=== PATIENT | female | born 1960 | race Caucasian/White ===

== ENCOUNTER 2019-07-17 15:03 | Emergency (ER) | payer OTHER ==
[2019-07-17 15:30] VITALS: TEMP 97.7; BMI 20.9
--- NOTE | 2019-07-17 15:44 | PDOC ---
History of Present Illness - General Chief Complaint: Chest Pain Stated Complaint: CHEST PAIN Time Seen by Provider: 07/17/19 15:28 History Source: Patient Exam Limitations: No Limitations - History of Present Illness Initial Comments: 07/17/19 16:06 59f with pmh of HTN, HLD, TIA, COPD/Emphysema, anxiety, hip replacement, intermittent 7/10 stabbing left sided chest pain since 1030 this morning radiating to her left shoulder associated with numbness to her left arm. She was shopping at the time. Has had chest pain in the past but never that severe. Was convinced to come to the er by her field nurse case manager. Often mixes oxycodon and benzos meds which cause her to fall. Smokes 5 cigarettes a day, has numerous family members who dies of MA's in their 50's. Presenting Symptoms: Chest Pain Timing/Duration: reports: intermittent Severity/Quality: reports: severe, stabbing Location: reports: other (left side of the chest) Chest Pain Radiation: reports: shoulders (left shoulder) Activities at Onset: reports: rest (shopping) Modifying Factors: improves with: movement, palpation Nitro Today/Relief: Yes: no nitro taken today Past History - Past Medical History Allergies/Adverse Reactions: Allergies Allergy/AdvReac Type Severity Reaction Status Date / Time No Known Allergies Allergy Verified 06/03/14 19:23 Home Medications: Ambulatory Orders Alprazolam [Xanax -] 2 mg PO TID 06/03/14 Gabapentin 100 mg PO ASDIR #60 capsule 06/03/14 Oxycodone HCl/Acetaminophen [Percocet 10-325 mg Tablet] 1 - 2 tab PO Q4H PRN # 20 tablet 06/03/14 Asthma: Yes CVA: Yes COPD: Yes HTN: Yes Liver Disease: Yes (hep c) Psychiatric Problems: Yes (anxiety) - Psycho Social/Smoking Cessation Hx Smoking History: Current every day smoker Have you smoked in the past 12 months: Yes Number of Cigarettes Smoked Daily: 5 Information on smoking cessation initiated: Yes Hx Alcohol Use: No Drug/Substance Use Hx: No Substance Use Type: Alcohol Review of Systems - Review of Systems Able to Perform ROS?: Yes Is the patient limited Georgian proficient: No Constitutional: No: Symptoms Reported HEENTM: No: Symptoms Reported Respiratory: No: Symptoms reported Cardiac (ROS): Yes: See HPI ABD/GI: No: Symptoms Reported : No: Symptoms Reported Musculoskeletal: No: Symptoms Reported All Other Systems: Reviewed and Negative *Physical Exam - Vital Signs Last Vital Signs Temp Pulse Resp BP Pulse Ox 97.7 F 100 H 19 124/86 95 07/17/19 15:13 07/17/19 15:23 07/17/19 15:23 07/17/19 15:23 07/17/19 15:23 - Physical Exam General Appearance: Yes: Nourished, Appropriately Dressed. No: Apparent Distress HEENT: positive: EOMI, MELINDA, Normal ENT Inspection Respiratory/Chest: positive: Chest Tender (left), Decreased Breath Sounds Cardiovascular: positive: Regular Rhythm, S1, S2, Tachycardia Gastrointestinal/Abdominal: positive: Normal Bowel Sounds. negative: Tender, Flat, Soft Musculoskeletal: positive: Normal Inspection. negative: CVA Tenderness Extremity: positive: Normal Capillary Refill, Normal Inspection, Normal Range of Motion Heart Score/ECG Review - History History: Moderately suspicious - Age Age: 45-65 - Risk Factors Risk Factors Heart Score: Yes Hx Hypercholesterolemia, Yes Hx Hypertension, No Hx Diabetes, Yes Smoking History, Yes Positive family hx of cardiac disease, No Hx Obesity Based on the list above the patient has:: >/=3 risk factors or Hx atherosclerotic disease - ECG Intrepretation Rhythm: Regular Rhythm - P and MI Atrial Enlargement: Left ED Treatment Course - LABORATORY CBC & Chemistry Diagram: 07/17/19 15:55 07/17/19 15:55 - RADIOLOGY Radiology Studies Ordered: Category Date Time Status CHEST X-RAY PORTABLE* [RAD] Stat Radiology 07/17/19 15:42 Ordered Medical Decision Making - Medical Decision Making 07/17/19 16:11 59f with pmh of HTN, HLD, TIA, COPD/Emphysema, anxiety, hip replacement, intermittent 7/10 stabbing left sided chest pain since 1030 this morning radiating to her left shoulder associated with numbness to her left arm. patient is insisting that she wants to go home to feed her pupper. Negotiating for her to stay until test results are back as this would otherwise be a tele obs admission. 07/17/19 16:17 EKG: Sinus rhythm with PAC's possible left atrial enlargement, septal infarct. 07/17/19 16:26 Patient left AMA Discharge - Discharge Information Problems reviewed: Yes Clinical Impression/Diagnosis: Chest pain Disposition: AGAINST MEDICAL ADVICE - Admission No - Follow up/Referral Referrals: Matthew Hines MD [Primary Care Provider] - - Patient Discharge Instructions - Post Discharge Activity
[2019-07-17 15:51] VITALS: BP 124/86; PULSE 100
[2019-07-17] MEDS ORDERED: ASPIRIN 325 MG TABLET PO ONE (16:05)
--- NOTE | 2019-07-17 16:19 | PDOC ---
Attending Attestation - Resident Resident Name: Antolin Norris - ED Attending Attestation I have performed the following: I have examined & evaluated the patient, The case was reviewed & discussed with the resident, I agree w/resident's findings & plan, Exceptions are as noted - HPI HPI: 07/17/19 16:16 59f with pmh of HTN, HLD, TIA, COPD/Emphysema, anxiety, hip replacement, intermittent 7/10 stabbing left sided chest pain since 1030 this morning radiating to her left shoulder associated with numbness to her left arm - Physicial Exam PE: 07/17/19 16:16 PE exam deferred by patient, requesting to leave AMA - Medical Decision Making 07/17/19 16:16 59 years old with aforementioned past medical history presented with chest pain states that she is very anxious needs to get home to her dog I was concerned given patient's complaint her EKG demonstrates normal sinus rhythm with no ST elevations and no T wave inversions septal infarct age-indeterminate I strongly recommended that the patient stay for recent blood work but she is not amenable to staying in the emergency department The patient is presenting with Chest pain. I am concerned that this may be ACS. The patient has verbalized understanding of my concerns. The patient is clinically sober and appears free from distracting injury. The patient appears to have intact insight, judgment, and reason. In my opinion, this patient has the capacity to make decisions The risks of leaving against medical advice without further evaluation treatment were discussed with the patient. These risks include Heart attack, , permanant disability. The patient indicated understanding of these risks and appeared to have the capacity to make this decision. The patient is unwilling to stay for a Labs and admission, patient is unwilling to remain for additional monitoring. He is refus-ing further care and leaving against medical advice I'm unable to convince the patient to stay. I have asked the patient to return as soon as possible to complete her evaluation.
[2019-07-17 16:51] LABS: BILIRUBIN,TOTAL 0.2 mg/dL (0.2-1); BLOOD UREA NITROGEN 10.1 mg/dL (7-18); CALCIUM 8.8 mg/dL (8.5-10.1); CREATININE 0.7 mg/dL (0.55-1.3); POTASSIUM 3.8 mmol/L (3.5-5.1); TOT PROT 7.3 g/dl (6.4-8.2)
[2019-07-17 16:54] LABS: BASO % 0.6 % (0-2.0); EOS % 0.4 % (0-4.5); HEMATOCRIT 43.2 % (32.4-45.2); HEMOGLOBIN 14.2 GM/dL (10.7-15.3); LYMPH % 33.6 % (8-40); MCH 32.6 pg (25.7-33.7); MCHC 32.9 g/dl (32.0-36.0); MEAN CELL VOLUME 99.2 fl (80-96); MONO % 4.9 % (3.8-10.2); NEUT % 60.5 % (42.8-82.8); PLATELET COUNT 244 K/MM3 (134-434); RBC 4.35 M/mm3 (3.60-5.2); RDW 14.9 % (11.6-15.6); WHITE BLOOD COUNT 6.7 K/mm3 (4.0-10.0)
--- NOTE | 2019-07-18 12:11 | EKG ---
Test Reason : Blood Pressure : / mmHG Vent. Rate : 094 BPM Atrial Rate : 094 BPM P-R Int : 146 ms QRS Dur : 072 ms QT Int : 388 ms P-R-T Axes : 052 013 040 degrees QTc Int : 485 ms SINUS RHYTHM WITH PREMATURE ATRIAL COMPLEXES POSSIBLE LEFT ATRIAL ENLARGEMENT SEPTAL INFARCT (CITED ON OR BEFORE 17-JUL-2019) ABNORMAL ECG WHEN COMPARED WITH ECG OF 12-FEB-2014 07:21, NON-SPECIFIC CHANGE IN ST SEGMENT IN ANTERIOR LEADS Confirmed by ESTEBAN SALGADO, SACHA ([id number]) on 07/18/2019 12:11:09 PM Referred By: Confirmed By:SACHA ORELLANA MD
== END 2019-07-17 16:39 | disposition left against medical advice (07) ==
LOC: JER 15:03
DX: R07.9 Chest pain, unspecified (principal); I10 Essential (primary) hypertension; J43.8 Other emphysema; E78.5 Hyperlipidemia, unspecified; F41.9 Anxiety disorder, unspecified; B18.2 Chronic viral hepatitis C; Z86.73 Personal history of transient ischemic attack (TIA), and cerebral infarction without residual deficits; Z96.649 Presence of unspecified artificial hip joint; F17.210 Nicotine dependence, cigarettes, uncomplicated
CPT/HCPCS: 36415; 80053; 84484; 85025; 85379; 93005; 93010; 99283-25

== ENCOUNTER 2019-07-18 13:48 | Observation (INO) | payer OTHER ==
[2019-07-18] MEDS ORDERED: SODIUM CHLORIDE 1,000 ML IV STA (14:25)
--- NOTE | 2019-07-18 14:36 | PDOC ---
History of Present Illness - General Chief Complaint: Altered Mental Status Stated Complaint: UNRESPONSUIVE/ R/O STROKE Time Seen by Provider: 07/18/19 14:08 History Source: Patient Exam Limitations: No Limitations - History of Present Illness Initial Comments: 07/18/19 14:35 Patient is a 59F with history of HTN, HLD, COPD and TIA here today complaining of facal droop, weakness and chest pain. The patient states she was last well two days ago, and noticed that her face was drooping and she spilled liquid out of her mouth while trying to eat. Endorses generalized weakness in the same 2 day time period. Patient also complains of numbness in her left leg over the past two years. Patient endorses multiple falls over a long time period. Denies etoh, endorses opiate and benzo use. Denies LOC, endorses right sided neck pain. Patient presented to the ED yesterday complaining of the same chest pain that she is complaining of today. She states it is worse on the left side, stabbing and is worse with inspiration. Denies history of blood clots, leg swelling, recent travel, estrogen use. Workup in the ED yesterday showed normal trop, negative d-dimer, EKG showed no signs of acute ischemia. Denies fevers, chills, nausea, vomiting. Denies shortness of breath and abdominal pain. Denies dysuria. NIH Stroke Scale - Last Known Well Date/Time & Onset Date Last Known Well: 07/16/19 Time Last Known Well: 08:00 - Initial Evaluation Level of consciousness: Alert Ask patient the month and their age: Answers both correctly Ask patient to open & close eyes; make fist and let go: Obeys both correctly Best gaze (horizontal eye movement): Normal Visual field testing: No visual field loss Facial paresis (Show teeth/raise eyebrows/close eyes tight): Minor paralysis ( flattened nasolabial fold, asymmetry on smiling) Motor Function: Left Arm: Normal Motor Function: Right Arm: Normal (extends arm 90 (or 45) degrees for 10 seconds without drift Motor Function: Left Leg: Normal (extends leg 30 degrees for 5 seconds without drift) Motor Function: Right Leg: Normal (extends leg 30 degrees for 5 seconds without drift) Limb Ataxia: No ataxia Sensory(Use pinprick test arms,legs,trunk,face/side to side): Normal Best language (Describe picture, name items, read sentences): No Aphasia Dysarthria (read several words): Normal articulation Extinction and Inattention: No abnormality - Total Score NIH Stroke Scale Score: 1 Past History - Past Medical History Allergies/Adverse Reactions: Allergies Allergy/AdvReac Type Severity Reaction Status Date / Time No Known Allergies Allergy Verified 06/03/14 19:23 Home Medications: Ambulatory Orders Alprazolam [Xanax -] 2 mg PO TID 06/03/14 Oxycodone HCl/Acetaminophen [Percocet 10-325 mg Tablet] 1 - 2 tab PO Q4H PRN # 20 tablet 06/03/14 Budesonide [Pulmicort 0.25 mg Nebulizer -] 1 amp IH ASDIR 07/18/19 Diltiazem HCl [Diltiazem ER] 240 mg PO DAILY 07/18/19 Fluticasone Propion/Salmeterol [Wixela 250-50 Inhub] 1 inh IN BID 07/18/19 Gabapentin 300 mg PO BID 07/18/19 Asthma: Yes CVA: Yes COPD: Yes Diabetes: No HTN: Yes Hypercholesterolemia: Yes Liver Disease: Yes (hep c) Psychiatric Problems: Yes (anxiety) - Psycho Social/Smoking Cessation Hx Smoking History: Smoker current status UNK Have you smoked in the past 12 months: No Number of Cigarettes Smoked Daily: 5 Information on smoking cessation initiated: No Hx Alcohol Use: No Drug/Substance Use Hx: No Substance Use Type: Alcohol Review of Systems - Review of Systems Able to Perform ROS?: Yes Comments:: 07/18/19 15:30 GENERAL/CONSTITUTIONAL: No fever or chills. +weakness. HEAD, EYES, EARS, NOSE AND THROAT: No change in vision. No sore throat. CARDIOVASCULAR: No chest pain or shortness of breath RESPIRATORY: No cough, wheezing, or hemoptysis. GASTROINTESTINAL: No nausea, vomiting, diarrhea or constipation. GENITOURINARY: No dysuria, frequency, or change in urination. MUSCULOSKELETAL: +L leg pain. No neck or back pain. SKIN: No rash NEUROLOGIC: No headache, vertigo, loss of consciousness, or change in strength/ sensation. ENDOCRINE: No increased thirst. No abnormal weight change HEMATOLOGIC/LYMPHATIC: No anemia, easy bleeding, or history of blood clots. ALLERGIC/IMMUNOLOGIC: No hives or skin allergy. *Physical Exam - Vital Signs Last Vital Signs Temp Pulse Resp BP Pulse Ox 97.1 F L 88 16 127/87 95 07/18/19 14:01 07/18/19 14:01 07/18/19 14:01 07/18/19 14:01 07/18/19 14:01 - Physical Exam Comments: 07/18/19 15:31 GENERAL: Sleepy but arousable, alert, and fully oriented, in no acute distress HEAD: No signs of trauma, normocephalic, atraumatic EYES: PERRLA, EOMI, sclera anicteric, conjunctiva clear ENT: Auricles normal inspection, hearing grossly normal, nares patent, oropharynx clear without exudates. Moist mucosa NECK: Normal ROM, supple, no lymphadenopathy, JVD, or masses, + R sided tenderness, no midline tenderness LUNGS: No distress, speaks full sentences, clear to auscultation bilaterally HEART: Regular rate and rhythm, normal S1 and S2, no murmurs, rubs or gallops, peripheral pulses normal and equal bilaterally. ABDOMEN: Soft, nontender, normoactive bowel sounds. No guarding, no rebound. No masses EXTREMITIES: Normal inspection, Normal range of motion, no edema. No clubbing or cyanosis. NEUROLOGICAL: L side facial droop, otherwise cranial nerves II through XII grossly intact. Normal speech, 4/5 strength in all extremities, reported decreased sensation in left leg SKIN: Warm, Dry, normal turgor, no rashes or lesions noted. ED Treatment Course - LABORATORY CBC & Chemistry Diagram: 07/18/19 14:31 07/18/19 14:31 - ADDITIONAL ORDERS Additional order review: Laboratory Results 07/18/19 14:23 POC Glucometer 61 07/18/19 14:23 POC Glucometer 61 - RADIOLOGY Radiology Studies Ordered: Category Date Time Status HEAD CT WITHOUT CONTRAST [CT] Stat CT Scan 07/18/19 14:28 Ordered CHEST X-RAY PORTABLE* [RAD] Stat Radiology 07/18/19 14:27 Ordered Medical Decision Making - Medical Decision Making 07/18/19 15:43 Patient is a 59F with history of HTN, HLD, COPD, TIA, opiate and benzo use here today with chest pain, facial droop, diffuse weakness. Vitals normal and stable. Last known well two days ago. Low suspicion symptoms caused by acute stroke, but possible. DDx includes, but not limited to: tia, opiate/benzo overdose, acs. D-dimer negative yesterday, same pain, low risk, ruled out. Will workup with cardiac workup, head ct, cervical spine ct, admit for TIA eval. 07/18/19 17:02 CBC normal. CMP shows low glucose, given food. Trop negative Cervical spine and head CT negative for acute pathology CXR pending. Patient reassessed, droop resolved. 07/18/19 17:18 CXR clear EKG shows NSR with no st elevations/depressions. Normal axis. Normal intervals. Q waves in V1/V2. No significant t wave abnormalities Case d/w Dr Funes, accepted to tele obs. Discharge - Discharge Information Problems reviewed: Yes Clinical Impression/Diagnosis: Chest pain - Admission Yes - Follow up/Referral - Patient Discharge Instructions - Post Discharge Activity
[2019-07-18 14:39] LABS: BASO % 1.1 % (0-2.0); EOS % 0.6 % (0-4.5); HEMATOCRIT 42.3 % (32.4-45.2); HEMOGLOBIN 14.5 GM/dL (10.7-15.3); LYMPH % 34.8 % (8-40); MCH 33.4 pg (25.7-33.7); MCHC 34.3 g/dl (32.0-36.0); MEAN CELL VOLUME 97.3 fl (80-96); MEAN PLT VOLUME 7.7 fl (7.5-11.1); MONO % 4.8 % (3.8-10.2); NEUT % 58.7 % (42.8-82.8); PLATELET COUNT 233 K/MM3 (134-434); RBC 4.35 M/mm3 (3.60-5.2); RDW 14.9 % (11.6-15.6); WHITE BLOOD COUNT 6.3 K/mm3 (4.0-10.0)
--- NOTE | 2019-07-18 15:05 | EKG ---
Test Reason : Blood Pressure : / mmHG Vent. Rate : 085 BPM Atrial Rate : 085 BPM P-R Int : 154 ms QRS Dur : 076 ms QT Int : 408 ms P-R-T Axes : 059 014 050 degrees QTc Int : 485 ms NORMAL SINUS RHYTHM POSSIBLE LEFT ATRIAL ENLARGEMENT SEPTAL INFARCT (CITED ON OR BEFORE 17-JUL-2019) ABNORMAL ECG WHEN COMPARED WITH ECG OF 17-JUL-2019 15:42, PREMATURE ATRIAL COMPLEXES ARE NO LONGER PRESENT Confirmed by SACHA ORELLANA MD ([id number]) on 07/18/2019 3:05:02 PM Referred By: Confirmed By:SACHA ORELLANA MD
[2019-07-18 15:09] LABS: INR 0.89 (0.83-1.09); PROTHROMBIN TIME (PATIENT) 10.5 SEC (9.7-13.0)
[2019-07-18 15:12] LABS: ACTIVATED PTT 29.3 SECONDS (25.2-36.5)
[2019-07-18 15:28] LABS: ALBUMIN 4.1 g/dl (3.4-5.0); ALK PHOS 78 U/L (45-117); ANION GAP 8 MMOL/L (8-16); BILIRUBIN,TOTAL 0.4 mg/dL (0.2-1); BLOOD UREA NITROGEN 9.1 mg/dL (7-18); CALCIUM 9.5 mg/dL (8.5-10.1); CHLORIDE 110 mmol/L (98-107); CO2 24 mmol/L (21-32); CREATININE 0.7 mg/dL (0.55-1.3); GLUCOSE,RANDOM 64 mg/dL (74-106); POTASSIUM 4.5 mmol/L (3.5-5.1); SGOT/AST 35 U/L (15-37); SGPT/ALT 33 U/L (13-61); SODIUM 143 mmol/L (136-145); TOT PROT 7.8 g/dl (6.4-8.2)
[2019-07-18 18:37] LABS: HYALINE CASTS 1 /lpf (0-8); URINE APPEARANCE CLEAR; URINE BACTERIA 150.4 /hpf (NEGATIVE); URINE BILIRUBIN NEGATIVE (NEGATIVE); URINE COLOR YELLOW; URINE GLUCOSE (UA) NEGATIVE (NEGATIVE); URINE KETONE NEGATIVE (NEGATIVE); URINE LEUK ESTERASE 2+ (NEGATIVE); URINE NITRITE NEGATIVE (NEGATIVE); URINE PROTEIN NEGATIVE (NEGATIVE); URINE RBC 1 /hpf (0-4); URINE UROBILINOGEN 0.2 mg/dL (0.2-1.0); URINE WBC 31 /hpf (0-5)
[2019-07-18 19:19] VITALS: BMI 21.9
--- NOTE | 2019-07-18 19:42 | HP ---
Admitting History and Physical - Admission Chief Complaint: shortness of breath History of Present Illness: 59 year old female PMHx HTN, HLD, COPD, multiple TIA's presents with chest pain , shortness of breath, and generalized weakness for a few days. She came to ED yesterday but left AMA to take care of her dogs. She now represents for evaluation. She states that she is short of breath at times, and she has had on again off again chest pain that radiates to the left arm. She has frequent falls , admits to drinking alcohol almost daily, usually beer. She states she is on xanax for anxiety, which is worsened by her boyfriend, and takes percocet for her left hip replacement that was done last year. As per ER physician, patient had questionable left facial droop on arrival, although she was lethargic and difficult to arouse, but when she woke up, facial droop was gone. Denies palpitations, nvd, fever/chills. States that chest pain is resolved and she just feels anxious now, requesting her xanax and percocet. History Source: Patient Limitations to Obtaining History: Poor Historian - Past Medical History BEATER LEAD: Yes: TIA Cardiovascular: Yes: HTN, Hyperlipdemia Pulmonary: Yes: COPD ...: No Psych: Yes: Anxiety - Past Surgical History Past Surgical History: Yes: Joint Replacement (left hip replacement last year) - Smoking History Smoking history: Current every day smoker Have you smoked in the past 12 months: No Aproximately how many cigarettes per day: 5 - Alcohol/Substance Use Hx Alcohol Use: Yes Number of Drinks Daily: 2 History of Substance Use: reports: Prescription (percocet and xanax) - Social History History of Recent Travel: No Home Medications - Allergies Allergies/Adverse Reactions: Allergies Allergy/AdvReac Type Severity Reaction Status Date / Time aspirin Allergy Verified 07/18/19 20:55 Penicillins Allergy Verified 07/18/19 20:55 - Home Medications Home Medications: Ambulatory Orders Alprazolam [Xanax -] 2 mg PO QID 06/03/14 Oxycodone HCl/Acetaminophen [Percocet 10-325 mg Tablet] 1 - 2 tab PO Q4H PRN # 20 tablet 06/03/14 Budesonide [Pulmicort 0.25 mg Nebulizer -] 1 amp IH ASDIR 07/18/19 Diltiazem HCl [Diltiazem ER] 240 mg PO DAILY 07/18/19 Fluticasone Propion/Salmeterol [Wixela 250-50 Inhub] 1 inh IN BID 07/18/19 Gabapentin 300 mg PO BID 07/18/19 Family Medical History Family Hx Cardiac Disorders: Mother, Father, Sister Family Hx Coronary Artery Disease: Mother, Father, Sister Review of Systems - Review of Systems Constitutional: reports: No Symptoms Eyes: reports: No Symptoms HENT: reports: No Symptoms Neck: reports: No Symptoms Cardiovascular: reports: Chest Pain, Shortness of Breath Respiratory: reports: SOB on Exertion Gastrointestinal: reports: No Symptoms Genitourinary: reports: No Symptoms Breasts: reports: No Symptoms Reported Musculoskeletal: reports: No Symptoms Integumentary: reports: No Symptoms Neurological: reports: No Symptoms Endocrine: reports: No Symptoms Hematology/Lymphatic: reports: No Symptoms Psychiatric: reports: No Symptoms Physical Examination Vital Signs: Vital Signs Temperature 98 F 07/18/19 19:08 Pulse Rate 105 H 07/18/19 19:08 Respiratory Rate 20 07/18/19 19:08 Blood Pressure 132/64 07/18/19 19:08 O2 Sat by Pulse Oximetry (%) 95 07/18/19 14:01 Constitutional: Yes: No Distress, Anxious, Poor Hygeine, Other (tremulous) HENT: Yes: WNL, Atraumatic, Normocephalic Neck: Yes: WNL, Supple, Trachea Midline Cardiovascular: Yes: WNL, Tachycardia Respiratory: Yes: WNL, Regular, CTA Bilaterally Gastrointestinal: Yes: WNL, Normal Bowel Sounds, Soft Musculoskeletal: Yes: WNL Extremities: Yes: WNL Edema: No Peripheral Pulses WNL: Yes Integumentary: Yes: Bruising (throughout all extremities) Neurological: Yes: WNL, Alert, Oriented ...Motor Strength: WNL Psychiatric: Yes: Other (anxious) Labs: CBC, BMP 07/18/19 14:31 07/18/19 14:31 Imaging - Results Chest X-ray: Report Reviewed X-ray: Report Reviewed Cat Scan: Report Reviewed EKG: Report Reviewed, Image Reviewed Problem List - Problems (1) Chest pain Code(s): R07.9 - CHEST PAIN, UNSPECIFIED (2) Anxiety Code(s): F41.9 - ANXIETY DISORDER, UNSPECIFIED (3) Tachycardia Code(s): R00.0 - TACHYCARDIA, UNSPECIFIED Assessment/Plan 59 year old female pmhx htn, hld, Hx TIAs, COPD presents with chest pain, shortness of breath and anxiety. Assessment: BUNDY Chest pain r/o ACS Questionable left facial droop Hx TIA ? COPD HTN HLD Plan: tele obs trop neg x 2, ekg no ischemia less likely tia/cva all imaging reports reviewed, no acute pathology PE ruled out overuse of percocet, patient is nodding off and requesting percocet and xanax at the same time monitor for etoh w/d resume home meds allergic to asa? check lipids and HbA1C hx of TIA should be on asa/statin for secondary prevention, needs to discuss with PCP
[2019-07-18 20:34] LABS: COCAINE, UR NEGATIVE ng/ml (CUTOFF=300); METHADONE, UR NEGATIVE ng/ml (CUTOFF=300); OPIATES, URI NEGATIVE ng/ml (CUTOFF=300); PHENCYCLIDINE,URINE NEGATIVE ng/ml (CUTOFF=25); URINE AMPHETAMINES NEGATIVE ng/ml (CUTOFF=500); URINE BARBITURATES NEGATIVE ng/ml (CUTOFF=200)
[2019-07-18 20:45] LABS: URINE BENZODIAZEPINES POSITIVE ng/ml (CUTOFF=200)
[2019-07-18] MEDS ORDERED: ACETAMINOPHEN 325 MG TABLET (FP) PO PRN (21:02)
[2019-07-18] MEDS ORDERED: oxyCODONE HCL 5 MG TABLET PO PRN (21:02)
[2019-07-18] MEDS ORDERED: PATIENT'S OWN MEDICATION (NON-FORMULARY) (Fluticasone Propion/Salmeterol [Wixela 250-50 In IN SCH (22:00)
[2019-07-18] MEDS: ALPRAZolam 1 MG TABLET PO PRN (22:06)
[2019-07-18] MEDS: GABAPENTIN 300 MG CAPSULE (FP) PO SCH (22:06)
[2019-07-18] MEDS: BUDESONIDE/FORMETEROL FUMARATE 80/4.5 mcg INHALER IH SCH (22:37)
[2019-07-19] MEDS ORDERED: ALPRAZolam 1 MG TABLET PO PRN (08:57)
[2019-07-19] MEDS: ALPRAZolam 1 MG TABLET PO PRN (09:16)
[2019-07-19] MEDS: GABAPENTIN 300 MG CAPSULE (FP) PO SCH (09:16)
[2019-07-19] MEDS: BUDESONIDE/FORMETEROL FUMARATE 80/4.5 mcg INHALER IH SCH (09:16)
[2019-07-19] MEDS ORDERED: HEPARIN NA (PORCINE) 5,000 UNITS/ML 1ML VIAL SQ SCH (10:00)
[2019-07-19] MEDS ORDERED: DILTIAZEM HCL 240 MG PO SCH (10:00)
[2019-07-19 12:17] VITALS: BP 103/69; PULSE 101; TEMP 98.3
--- NOTE | 2019-07-19 13:16 | DS ---
Physical Exam: SUBJECTIVE: Patient seen and examined OBJECTIVE: Vital Signs Last Vital Signs Temp Pulse Resp BP Pulse Ox 98.3 F 101 H 20 103/69 95 07/19/19 10:00 07/19/19 10:00 07/19/19 10:00 07/19/19 10:07/19/19 10:00 PHYSICAL EXAM GENERAL: The patient is awake, alert, and fully oriented, in no acute distress. Very anxious and jittery EYES: PERRL, extraocular movements intact, ENT: moist mucous membranes. NECK: supple. LUNGS: Breath sounds equal, clear to auscultation bilaterally, no wheezes, no crackles, HEART: Regular rate and rhythm, S1, S2 without murmur, rub or gallop. ABDOMEN: Soft, nontender, nondistended, normoactive bowel sounds, no guarding, no rebound EXTREMITIES: 2+ pulses, warm, well-perfused, no edema. Surgical scar on the left hip. NEUROLOGICAL: Cranial nerves II through XII grossly intact. Numbness on the lower jaw,V3 region of the left face. Ptosis of the right face, Numbness and weakness of the left arm and leg. SKIN: Warm, dry, LABS CBC,CMP WBC 6.3 K/mm3 (4.0-10.0) 07/18/19 14:31 RBC 4.35 M/mm3 (3.60-5.2) 07/18/19 14:31 Hgb 14.5 GM/dL (10.7-15.3) 07/18/19 14:31 Hct 42.3 % (32.4-45.2) 07/18/19 14:31 MCV 97.3 fl (80-96) H 07/18/19 14:31 MCH 33.4 pg (25.7-33.7) 07/18/19 14:31 MCHC 34.3 g/dl (32.0-36.0) 07/18/19 14:31 RDW 14.9 % (11.6-15.6) 07/18/19 14:31 Plt Count 233 K/MM3 (134-434) 07/18/19 14:31 MPV 7.7 fl (7.5-11.1) 07/18/19 14:31 Absolute Neuts (auto) 3.7 K/mm3 (1.5-8.0) 07/18/19 14:31 Neutrophils % 58.7 % (42.8-82.8) 07/18/19 14:31 Lymphocytes % 34.8 % (8-40) 07/18/19 14:31 Monocytes % 4.8 % (3.8-10.2) 07/18/19 14:31 Eosinophils % 0.6 % (0-4.5) 07/18/19 14:31 Basophils % 1.1 % (0-2.0) 07/18/19 14:31 Nucleated RBC % 0 % (0-0) 07/18/19 14:31 Sodium 143 mmol/L (136-145) 07/18/19 14:31 Potassium 4.5 mmol/L (3.5-5.1) 07/18/19 14:31 Chloride 110 mmol/L (98-107) H 07/18/19 14:31 Carbon Dioxide 24 mmol/L (21-32) 07/18/19 14:31 Anion Gap 8 MMOL/L (8-16) 07/18/19 14:31 BUN 9.1 mg/dL (7-18) 07/18/19 14:31 Creatinine 0.7 mg/dL (0.55-1.3) 07/18/19 14:31 Est GFR (CKD-EPI)AfAm 111.47 07/18/19 14:31 Est GFR (CKD-EPI)NonAf 96.18 07/18/19 14:31 POC Glucometer 120 UNITS (80-120) 07/19/19 09:23 Random Glucose 64 mg/dL (74-106) L 07/18/19 14:31 Calcium 9.5 mg/dL (8.5-10.1) 07/18/19 14:31 Magnesium 2.5 mg/dL (1.8-2.4) H 07/18/19 14:31 Total Bilirubin 0.4 mg/dL (0.2-1) 07/18/19 14:31 AST 35 U/L (15-37) 07/18/19 14:31 ALT 33 U/L (13-61) 07/18/19 14:31 Alkaline Phosphatase 78 U/L (45-117) 07/18/19 14:31 Creatine Kinase 129 U/L (26-192) 07/18/19 14:31 Troponin I < 0.02 ng/ml (0.00-0.05) 07/18/19 14:31 Total Protein 7.8 g/dl (6.4-8.2) 07/18/19 14:31 Albumin 4.1 g/dl (3.4-5.0) 07/18/19 14:31 Home Medications Medication Instructions Recorded Alprazolam [Xanax -] 2 mg PO QID 06/03/14 Budesonide [Pulmicort 0.25 mg 1 amp IH ASDIR 07/18/19 Nebulizer -] Diltiazem HCl [Diltiazem ER] 240 mg PO DAILY 07/18/19 Fluticasone Propion/Salmeterol 1 inh IN BID 07/18/19 [Wixela 250-50 Inhub] Gabapentin 300 mg PO BID 07/18/19 HOSPITAL COURSE: Date of Admission:07/18/19 59 year old female PMHx HTN, HLD, COPD, multiple TIA's presents with chest pain , shortness of breath, anxiety disorder on Xanax and generalized weakness for a few days. Pt was worked up for chest pain r/o ACS and TIA/CVA. EKGs and trops x2 were negative and head CT showed no acute changes. Pt was evaluated and further work up was needed, however, pt did not want to stay and left AMA. Pt left AMA CT head= mild-mod volume loss and ventricular dilation. EKG neg Trop neg x2 Date of Discharge: 07/19/19 Minutes to complete discharge: 40 Discharge Summary Problems reviewed: Yes Reason For Visit: CHEST PAIN Condition: Good - Instructions Disposition: AGAINST MEDICAL ADVICE - Home Medications Comprehensive Discharge Medication List: Ambulatory Orders Alprazolam [Xanax -] 2 mg PO QID 06/03/14 Budesonide [Pulmicort 0.25 mg Nebulizer -] 1 amp IH ASDIR 07/18/19 Diltiazem HCl [Diltiazem ER] 240 mg PO DAILY 07/18/19 Fluticasone Propion/Salmeterol [Wixela 250-50 Inhub] 1 inh IN BID 07/18/19 Gabapentin 300 mg PO BID 07/18/19 ATTENDING PHYSICIAN STATEMENT I saw and evaluated the patient. I reviewed the resident's note and discussed the case with the resident. I agree with the resident's findings and plan as documented. SUBJECTIVE: OBJECTIVE: ASSESSMENT AND PLAN:
--- NOTE | 2019-07-19 18:05 | PN ---
Teaching Attending Note Name of Resident: Jason Urena ATTENDING PHYSICIAN STATEMENT I saw and evaluated the patient. I reviewed the resident's note and discussed the case with the resident. I agree with the resident's findings and plan as documented. SUBJECTIVE: very poor historian . reports falling in parking lot when she felt weak in her legs, not sure if she had LOC. reports L sided numbness for some while ( days ) , has droopy R eye lid at her base line. complains of CP with exertion. her chest pain she presented with has resolved. but also, she reports trial of chect compression (? who ) in her parking lot, so her chest is sore. no SOB at this time. she thinks she had a TIA a year ago after her sx ( in rehab), she does not remember her sx. takes ativan 2 mg QID fro her anxiety. repeorts allergy to ASA ( throat closes) OBJECTIVE: NAD. MMM, round pupils, droopy R eyelid. Lungs: CTAB CV: RRR, no MRG Abd: sfot, NT, ND, NL BS MS: TTP over sternal area and L parasternal area. Ext: No edema. Neuro : EOMI, round equal pupils, reactive to light , R ptosis, no facial droop , strength : LUE: 4/5 shoulder flexion, and abduction . 4/5 biceps, 5/5 triceps, RUE: 5/5 shoudler abduction and flexion, biceps and triceps LLE: 4/5 hip flexion, knee flexion and extention 5/5 , ankle dorsiflexion 4/5, ankle plantar flexion 5/5 RLE: 4/5 hip flexion, knee flexion and extention 5/5 , ankle dorsiflexion 5/5, ankle plantar flexion 5/5 sensation to light touch decreased in L sided face, LUE and LLE. A/p 59 y/o lady with h/o TIA, L hip sx, CAD, HLP, COPD, h/o ETOH abuse , benzos dependence. She presented with SOB and CP and questionable facial droop in ER 1- Questionable facial droop. 2- atypical cp 3- exertional CP 4- L sided numbness and neuro deficits Plan: - plan was to get mRI of brain and monitor on tele , and adjust meds - patient wanted to leave the hospital as she has a little animal at home, she can't smoke here, and she can't wait for MRI. - she understand that we need to r/o stroke, but she decided to leave AMA
--- NOTE | 2019-07-19 18:21 | PDOC ---
Documentation entered by Carmen Curry SCRIBE, acting as scribe for Leslee Clement MD. Leslee Clement MD: This documentation has been prepared by the Antoinette dick Xhesika, SCRIBE, under my direction and personally reviewed by me in its entirety. I confirm that the documentation accurately reflects all work, treatment, procedures, and medical decision making performed by me. Attending Attestation - Resident Resident Name: Romel Cannon - ED Attending Attestation I have performed the following: I have examined & evaluated the patient, The case was reviewed & discussed with the resident, I agree w/resident's findings & plan, Exceptions are as noted - HPI HPI: 07/18/19 15:21 The patient is a 59 year old female with a significant PMH of HTN, HLD, COPD and TIA who presents to the emergency department for weakness, facial droop, neck pain, and chest pain. Patient was seen here in the ED yesterday (07/17/19) for similar symptoms. Today, patient describes the CP as L sided, pleuritic, 9/ 10 in severity, and worsened with breathing. Patient notes 2 days ago she was drinking water, noticed her water was spilling out of her mouth and felt weak. Pts last known well was 2 days ago. The patient denies chest pain, shortness of breath, headache and dizziness. Denies fever, chills, cough, nausea, vomiting, diarrhea and constipation. Allergies: NKDA Past surgical history: L hip replacement - Physicial Exam PE: 07/18/19 15:23 agree with resident exam - Medical Decision Making 07/18/19 16:23 59yo F hx HTN, HL, COPD presents to the ED with chest pain and L sided facial droop CTH negative for acute infarct, pt will need MRI to r/o stroke Trop neg x1, she will need admission for ACS r/o given moderate risk Anticipate admission
[2019-07-19] MEDS ORDERED: ALPRAZolam 1 MG TABLET PO SCH (22:00)
== END 2019-07-19 12:12 | disposition left against medical advice (07) ==
LOC: JER 13:48 → JERBED 17:19 → J4W 18:41
PROVIDERS: ADMIT Internal Medicine; ATTEND Internal Medicine
PROC: 3E0337Z Introduction of Electrolytic and Water Balance Substance into Peripheral Vein, Percutaneous Approach (ICD-10-PCS; principal; 2019-07-18)
PROC: 3E013GC Introduction of Other Therapeutic Substance into Subcutaneous Tissue, Percutaneous Approach (ICD-10-PCS; 2019-07-18)
PROC: 3E0F7GC Introduction of Other Therapeutic Substance into Respiratory Tract, Via Natural or Artificial Opening (ICD-10-PCS; 2019-07-18)
DX: R07.89 Other chest pain (principal); R00.0 Tachycardia, unspecified; R20.0 Anesthesia of skin; I10 Essential (primary) hypertension; E78.5 Hyperlipidemia, unspecified; J44.9 Chronic obstructive pulmonary disease, unspecified; R29.6 Repeated falls; J45.909 Unspecified asthma, uncomplicated; F17.210 Nicotine dependence, cigarettes, uncomplicated; F41.9 Anxiety disorder, unspecified; Z86.73 Personal history of transient ischemic attack (TIA), and cerebral infarction without residual deficits; Z86.19 Personal history of other infectious and parasitic diseases; Z96.642 Presence of left artificial hip joint; Z88.0 Allergy status to penicillin; Z88.6 Allergy status to analgesic agent
CPT/HCPCS: 36415; 70450-TC; 71045-TC-FY; 72125-TC; 80053; 80307; 81003; 82550; 82962; 83735; 84484; 85025; 85610; 85730; 93005; 93010; 94640; 96360; 96372; 99285-25; G0378; J1644; J7030